=== PATIENT | female | born 1940 | race Caucasian/White ===

== ENCOUNTER 2020-01-11 03:38 | Inpatient (IN) | payer MEDICARE ==
[2020-01-11] VITALS (10 sets, daily range): BP systolic 118–159; BP diastolic 52–77
[~2020-01-11] VITALS: Ht 152.4 cm; Wt 94.5 kg
--- NOTE | 2020-01-11 04:09 | PHYS DOC ---
General Adult EDM: Chief Complaint: DYSPNEA/RESPIRATOY DISTRESS HPI: HPI: 79-year-old female presents with shortness of breath. The patient was feeling mildly short of breath after dinnertime last night. She was able to go to sleep. She woke up around 2 AM with significantly worse shortness of breath. Also feels like she has chills but did not measure a fever at home. She does not really have a cough, she just feels like she cannot catch her breath. She denies chest pain or diaphoresis. No stated on her cardiac history. The patient did recently have lumbar spinal fusion about 3 weeks ago. Review of Systems: Review of Systems: Constitutional: Denies fever or chills Eyes: Denies change in visual acuity HENT: Denies nasal congestion or sore throat Respiratory: Denies cough or shortness of breath Cardiovascular: Denies chest pain or edema GI: Denies abdominal pain, nausea, vomiting, bloody stools or diarrhea : Denies dysuria Musculoskeletal: Denies back pain or joint pain Integument: Denies rash Neurologic: Denies headache, focal weakness or sensory changes Endocrine: Denies polyuria or polydipsia Lymphatic: Denies swollen glands Psychiatric: Denies depression or anxiety Physical Exam: PE: Constitutional: Well developed, well nourished, obese, no acute distress, non- toxic appearance. [] HENT: Normocephalic, atraumatic, bilateral external ears normal, oropharynx moist, no oral exudates, nose normal. [] Eyes: PERRLA, EOMI, conjunctiva normal, no discharge. [] Neck: Normal range of motion, no tenderness, supple, no stridor. [] Cardiovascular: Heart rate regular rhythm, no murmur [] Lungs & Thorax: Bilateral breath sounds diminished[] Abdomen: Bowel sounds normal, soft, no tenderness, no masses, no pulsatile masses. [] Skin: Warm, dry, no erythema, no rash. [] Back: No tenderness, no CVA tenderness. [] Extremities: No tenderness, no cyanosis, no clubbing, ROM intact, no edema. [] Neurologic: Alert and oriented X 3, normal motor function, normal sensory fun ction, no focal deficits noted. [] Psychologic: Affect normal, judgement normal, mood normal. [] EKG: EKG: Sinus tachycardia, rate 133, normal axis, no ST elevation or depression. [] Radiology/Procedures: Radiology/Procedures: [] Impressions: Study: CR PORTABLE CHEST 1V Indication: Shortness of breath. Comparison: None. Findings: The cardiomediastinal silhouette is at the upper limits of normal for size taking into consideration AP technique. Plethoric central vasculature. Generalized increased interstitial markings with a predilection for the lower lung zones. Probable bibasilar volume loss and a suspected small left pleural effusion. Impression: Constellation of findings, as detailed above, raising the question of congestive heart failure/volume overload. A superimposed infectious process is not excluded. Follow-up to confirm improvement is recommended. Electronically signed by: MONICA SANCHEZ MD (01/11/2020 4:51 AM) [id number] DICTATED AND SIGNED BY: MONICA SANCHEZ MD DATE: 01/11/20 0451 CC: SHERI GARZON DO; LINO BROWNING MD ~ Heart Score: Risk Factors: Risk Factors: DM, Current or recent (<one month) smoker, HTN, HLP, family history of CAD, obesity. Risk Scores: Score 0 - 3: 2.5% MACE over next 6 weeks - Discharge Home Score 4 - 6: 20.3% MACE over next 6 weeks - Admit for Clinical Observation Score 7 - 10: 72.7% MACE over next 6 weeks - Early Invasive Strategies Course & Med Decision Making: Course & Med Decision Making Pertinent Labs and Imaging studies reviewed. (See chart for details) Patient's initial oxygen was 77. We will place her on 3 L nasal cannula as she increased to 83. She has a temperature of 103. I have ordered a liter of normal saline and 1 g of Tylenol. The patient's chest x-ray suggestive of possible CHF but infectious cause cannot be ruled out. COVID-19 is still within the differential also aggressive fluid resuscitation is not indicated. I am waiting for proBNP. Her lactic acid is greater than 3. Additionally ordered for a normal Lasix IV. Patient continues to have her rate around 130. Liter of fluid for possible sepsis. Sepsis for details. Blood cultures have been sent. Will cover with Zosyn. I discussed the patient with Dr. Browning and he has accepted her for admission. The patient is satting 93% on 4 to 5 L. 57 minutes of critical care time was spent on this patient exclusive of other billable procedures. [] Dragon Disclaimer: Dragon Disclaimer: This electronic medical record was generated, in whole or in part, using a voice recognition dictation system. Departure Departure: Impression: Primary Impression: Pneumonia Qualified Codes: J18.9 - Pneumonia, unspecified organism Additional Impressions: Suspected 2019 novel coronavirus infection Lactic acidosis Sepsis Disposition: 09 ADMITTED INPT THIS HOSP Admitting Physician: Lino Browning Condition: GUARDED Referrals: LINO BROWNING MD (PCP) Sepsis Assessment: Date and Time of Assessment Date: Jan 11, 2020 Time: 04:00 Respirations Respiratory Effort: Normal, Shortness of air Respiratory Pattern: Normal Cardiovascular Pulse Rhythm: Regular HEART: S1 and S2 normal Lung Sounds Breath Sounds: Diminished Capillary Refill Capillary Refill: Rt Hand < 3 seconds Peripheral Pulse Pulse Location: Monitor Pulse Strength: Normal (2+) Pulse Assessment Method: Monitor Integumentary Skin: Warm Skin Moisture: Dry Skin Turgor: Decreased Skin Color: no erythema Fingernail Color: WNL Sepsis Assessment: Date and Time of Assessment Date: Jan 11, 2020 Time: 05:33 Respirations Respiratory Effort: Shortness of air Cardiovascular Pulse Rhythm: Regular HEART: S1 and S2 normal Lung Sounds Breath Sounds: Diminished Capillary Refill Capillary Refill: Rt Hand < 3 seconds Peripheral Pulse Pulse Location: Monitor Pulse Strength: Normal (2+) Pulse Assessment Method: Monitor Integumentary Skin: Warm Skin Moisture: Dry Skin Turgor: Normal Skin Color: no erythema Fingernail Color: WNL SHERI GARZON DO Jan 11, 2020 04:09
[2020-01-11] MEDS ORDERED: ACETAMINOPHEN 500 MG TABLET PO ONE (04:15)
[2020-01-11] MEDS ORDERED: PIP/TAZO PER PHARMACY MC PRN ×2 (04:45→17:30)
--- NOTE | 2020-01-11 04:50 | EKG ---
[address] [address] Test Date: 2020-01-11 Test Time: 04:13:45 Pat Name: JIMENA YOUSIF Department: Room: Gender: F Tapper Supervisor: ALFA : [id number] Requested By: SHERI GARZON Order Number: [id number] Reading MD: Measurements Intervals [place] Rate: 133 P: 0 AR: 152 QRS: 46 QRSD: 72 T: 37 QT: 276 QTc: 412 Interpretive Statements SINUS TACHYCARDIA OTHERWISE NORMAL ECG RI6.02 No previous ECG available for comparison
--- NOTE | 2020-01-11 04:54 | RAD ---
Study: CR PORTABLE CHEST 1V Indication: Shortness of breath. Comparison: None. Findings: The cardiomediastinal silhouette is at the upper limits of normal for size taking into consideration AP technique. Plethoric central vasculature. Generalized increased interstitial markings with a predilection for the lower lung zones. Probable bibasilar volume loss and a suspected small left pleural effusion. Impression: Constellation of findings, as detailed above, raising the question of congestive heart failure/volume overload. A superimposed infectious process is not excluded. Follow-up to confirm improvement is recommended. Electronically signed by: MONICA SANCHEZ MD (01/11/2020 4:51 AM) [id number]
[2020-01-11] MEDS ORDERED: IV NORMAL SALINE 1,000ML 1,000 ML IV ONE (05:00)
[2020-01-11 05:14] LABS: BASO % 0 % (0-3); EOS # 1.2 x10^3/uL (0.0-0.7); EOS % 7 % (0-3); HEMATOCRIT 37.3 % (36.0-47.0); HEMOGLOBIN 11.8 g/dL (12.0-15.5); LYMPH % 6 % (24-48); MEAN CORPUSCULAR HEMOGLOBIN 30 pg (25-35); MEAN CORPUSCULAR HGB CONC 32 g/dL (31-37); MEAN CORPUSCULAR VOLUME 96 fL (79-100); MONO # 1.1 x10^3/uL (0.0-1.1); MONO % 7 % (0-9); NEUT # 14.2 x10^3uL (1.8-7.7); NEUT % 81 % (31-73); PLATELET COUNT 249 x10^3/uL (140-400); RED BLOOD COUNT 3.91 x10^6/uL (3.50-5.40); RED CELL DISTRIBUTION WIDTH 14.8 % (11.5-14.5); WHITE BLOOD COUNT 17.6 x10^3/uL (4.0-11.0)
[2020-01-11 05:15] LABS: CALCIUM 9.2 mg/dL (8.5-10.1); CREATININE 1.3 mg/dL (0.6-1.0); GFR 39.7; POTASSIUM 3.5 mmol/L (3.5-5.1)
[2020-01-11] MEDS ORDERED: ALBUTEROL SULFATE 2.5 MG/3 ML NEBU. NEB ONE (05:15)
[2020-01-11 05:28] LABS: ALBUMIN/GLOBULIN RATIO 0.8 (1.0-1.7); TOTAL BILIRUBIN 0.7 mg/dL (0.2-1.0); TOTAL PROTEIN 6.6 g/dL (6.4-8.2)
[2020-01-11] MEDS ORDERED: FUROSEMIDE 40 MG/4 ML VIAL IVP ONE (05:30)
[2020-01-11] MEDS ORDERED: ACETAMINOPHEN 325 MG TABLET PO PRN (05:45)
[2020-01-11] MEDS ORDERED: ONDANSETRON PF 4 MG/2 ML VIAL. IVP PRN (05:45)
[2020-01-11] MEDS ORDERED: PIPERACILLIN/TAZOBACTAM 3.375 GM in IV NORMAL SALINE 50ML 50 ML IV ONE (06:00)
[2020-01-11 06:14] LABS: INFLUENZA A PATIENT NEGATIVE (NEGATIVE); INFLUENZA B PATIENT NEGATIVE (NEGATIVE)
[2020-01-11] MEDS: IV NORMAL SALINE 1,000ML 1,000 ML IV SCH ×2 (06:15→06:59)
[2020-01-11] MEDS ORDERED: PIPERACILLIN/TAZOBACTAM 3.375 GM VIAL IV ONE (06:26)
[2020-01-11] MEDS ORDERED: IV NORMAL SALINE 50ML 50 ML ONE (06:26)
[2020-01-11 06:30] LABS: % BANDS 6 % (0-9); % SEGS 77 % (35-66)
[2020-01-11 06:31] LABS: % EOS 7 % (0-5); % LYMPHS 5 % (24-48); % MONOS 5 % (0-10); PLT ESTIMATE ADEQUATE (ADEQUATE)
[2020-01-11] MEDS: IPRATRPIUM/ALBUTEROL 0.5/2.5MG 3 ML NEBU. NEB SCH ×4 (08:00→20:00)
[2020-01-11] MEDS: PIPERACILLIN/TAZOBACTAM 3.375 GM in IV NORMAL SALINE 50ML 50 ML IV SCH ×2 (14:00→20:20)
--- NOTE | 2020-01-11 15:00 | NUR ---
Patient was admitted from the ED arrived to the unit via EMS. Patient is alert and oriented. Patient was oriented to unit routines. Patient is in isolation due to pending covid test. Patient is in bed with side rails up X's 2, call light in reach, WCTM. Dr Medina notified that patient has arrived to the unit awaiting return phone call for orders.
[2020-01-11 15:17] LABS: BILIRUBIN,URINE NEG (NEG); CLARITY,URINE CLEAR; COLOR,URINE YELLOW; GLUCOSE,URINE NEG (NEG); NITRITE,URINE NEG (NEG); UROBILINOGEN,URINE 0.2 mg/dL (0.2 mg/dL)
[2020-01-11 15:18] LABS: BACTERIA,URINE FEW /HPF (0-FEW); RBC,URINE RARE /HPF (0-2); SQUAMOUS EPITHELIAL CELL,UR FEW /LPF
[2020-01-11] MEDS ORDERED: METO25TA4 PO (16:20)
[2020-01-11] MEDS ORDERED: FURO-69 PO (16:20)
[2020-01-11] MEDS ORDERED: ATORVASTATIN CA80 MG PO (16:20)
[2020-01-11] MEDS ORDERED: OMEG1CAP50 PO (16:20)
[2020-01-11] MEDS ORDERED: CLOP75TA57 PO (16:20)
[2020-01-11] MEDS ORDERED: LISI-334 PO (16:20)
[2020-01-11] MEDS ORDERED: MULT-245 PO (16:20)
[2020-01-11] MEDS ORDERED: CELE200C PO (16:20)
[2020-01-11] MEDS ORDERED: METF500T16 PO (16:20)
[2020-01-11] MEDS ORDERED: FLUT9.9S NS (16:20)
[2020-01-11] MEDS ORDERED: GABA-586 PO (16:20)
[2020-01-11] MEDS ORDERED: AZITHROMYCIN 250 MG TABLET. PO ONE (17:30)
[2020-01-11] MEDS: VANCOMYCIN PER PHARMACY MC PRN (17:36)
--- NOTE | 2020-01-11 17:43 | NUR ---
Pharmacy Vancomycin Dosing Note S:Consulted to monitor and dose vancomycin started 01/11/20. O:JIMENA YOUSIF is a 79 year old F with Sepsis Pneumonia, . Height: 5 feet, 0 inches Weight: 93.8 kg [place] Body Weight: 45.50 Adjusted Body Weight: 64.82 Dosing Weight: Actual Other Antibiotics: AZITHROMYCIN PO ZOSYN 3.375GM IV LABS: Last BUN: 22 Last Creatinine: 1.3 Creatinine Clearance: 37.08 Last WBC: 17.6 Vancomycin Dosing: Loading Dose: 2000 mg x1 Dosing Weight: Actual Target Trough: 15-20 A: Based on: Actual weight, renal funcation, and indication P: 1. Begin Vancomycin 1500 mg IV q24h 2. Follow up Trough level on 01/13/20 at 1730 3. Pharmacy will continue to monitor, follow and adjust therapy as needed. BRENDA ASENCIO, 01/11/20 [id number]
[2020-01-11] MEDS ORDERED: ZOLPIDEM 5 MG TABLET. PO PRN (17:45)
[2020-01-11] MEDS ORDERED: ACETAMINOPHEN 500 MG TABLET PO PRN (17:45)
[2020-01-11] MEDS ORDERED: MAG HYDROX/AL HYDROX/SIMETH 30 ML ORAL.SUSP PO PRN (17:45)
[2020-01-11] MEDS ORDERED: VANCOMYCIN 2 GM in IV NORMAL SALINE 500ML 500 ML IV ONE (18:00)
[2020-01-11] MEDS: LISINOPRIL 20 MG TABLET PO SCH (18:06)
[2020-01-11] MEDS: METOPROLOL TART IMMED RELEASE 25 MG TABLET. PO SCH (18:07)
[2020-01-11] MEDS: CHOLECALCIFEROL (VITAMIN D3) 1,000 UNIT TABLET PO SCH (18:10)
[2020-01-11] MEDS: FAMOTIDINE 20 MG TABLET PO SCH (20:20)
[2020-01-11] MEDS: GABAPENTIN 300 MG CAPSULE. PO SCH (20:20)
[2020-01-11] MEDS ORDERED: LISINOPRIL 20 MG TABLET PO SCH (21:00)
[2020-01-11] MEDS ORDERED: METOPROLOL TART IMMED RELEASE 25 MG TABLET. PO SCH (21:00)
[2020-01-12] VITALS (13 sets, daily range): BP systolic 107–160; BP diastolic 47–82
--- NOTE | 2020-01-12 00:48 | HP ---
ADMIT DATE: HISTORY OF PRESENT ILLNESS: A 79-year-old female who was doing well. She recently had a major operation on her back with rods and fusion approximately on 12/17/2019. The patient, however, late last night began to have increased shortness of breath, finally came in through the Emergency Room where she was in acute respiratory distress. The patient was found to have a pneumonic process, and as a result of this, the patient along with her respiratory distress, was admitted to the hospital for IV antibiotic therapy and close monitoring. PAST MEDICAL HISTORY: History of stroke in 07/2018, hypercholesterolemia, hypertension, abdominal ultrasound, multiple skeletal disorders, orthopedic surgery, joint replacement, back pain, endocrine disorder, diabetes, history of skin cancer over the left eye, and influenza vaccination. ALLERGIES: CIPRO, OXYCODONE and PREDNISONE. FAMILY HISTORY: Unremarkable. SOCIAL HISTORY: Denies smoking, alcohol or drug use. HOME MEDICATIONS: Include Plavix, Lipitor 80, omega-3, metoprolol, lisinopril 20, Celebrex, gabapentin 300, metformin 500 b.i.d., fluticasone and multivitamin. REVIEW OF SYSTEMS: The patient denies any headaches, visual changes, blurred vision, double vision. Denies any melena, hematochezia, hematemesis and neurologically stable there except for difficulty in breathing. PHYSICAL EXAMINATION: GENERAL: This is a pleasant white female, looking stated age. VITAL SIGNS: Initially came in with blood pressure of approximately 150/70, respiratory rate 20, pulse 130, temperature 100.7. The patient is on 4 liters at 95%. HEENT: The patient's head was atraumatic, normocephalic. Eyes: PERRLA without jaundice. The mouth and throat were normal. NECK: Supple, without JVD, carotid bruits or thyromegaly. LUNGS: Diminished throughout, but basically clear. CARDIOVASCULAR: Regular sinus rhythm, S1, S2. ABDOMEN: Markedly protuberant, soft, but nontender. BACK: Lower back shows a well-healed surgical scar in the midline in the lower lumbar spine area. EXTREMITIES: Without clubbing, cyanosis, nor edema. NEUROLOGIC: The patient was her usual self. Speech fluent, spontaneous, and appropriate. LABORATORY DATA: White count was approximately 18,000 rounded off, hemoglobin and hematocrit 11 and 37. There were 6 bands noted. The patient's sodium and potassium 140, 3.5, 22, 1.3, 186 on the blood sugar. Lactic acid 3.6. Troponin is 0.031, alkaline phosphatase 120. BNP of 730. The patient's chest x-ray shows a possible pneumonic process versus that of heart failure. The patient, as noted, required up to 9 liters of oxygen at one time to maintain her proper oxygen saturation. In any case, the patient was placed in the ICU in critical condition and continued to be monitored there. IMPRESSION: Sepsis and pneumonia of unspecified etiology, acute on top of chronic diastolic heart failure, essential hypertension, sinus tachycardia, leukocytosis, and moderate protein malnutrition. PLAN: The patient continued to be monitored carefully. Her COVID-19 is still pending and we will make further adjustments there; otherwise, she is on IV antibiotic therapy and close monitoring here in the ICU. BRENDAN BROWNING MD DR: ESTER/cale JOB#: [id number] / [id number]
[2020-01-12] MEDS: PIPERACILLIN/TAZOBACTAM 3.375 GM in IV NORMAL SALINE 50ML 50 ML IV SCH ×4 (02:11→20:27)
[2020-01-12 06:44] LABS: BASO % 0 % (0-3); EOS # 1.3 x10^3/uL (0.0-0.7); EOS % 12 % (0-3); HEMATOCRIT 32.7 % (36.0-47.0); HEMOGLOBIN 10.4 g/dL (12.0-15.5); LYMPH % 19 % (24-48); MEAN CORPUSCULAR HEMOGLOBIN 30 pg (25-35); MEAN CORPUSCULAR HGB CONC 32 g/dL (31-37); MEAN CORPUSCULAR VOLUME 96 fL (79-100); MONO # 0.9 x10^3/uL (0.0-1.1); MONO % 8 % (0-9); NEUT # 6.4 x10^3uL (1.8-7.7); NEUT % 60 % (31-73); PLATELET COUNT 214 x10^3/uL (140-400); RED BLOOD COUNT 3.42 x10^6/uL (3.50-5.40); RED CELL DISTRIBUTION WIDTH 14.9 % (11.5-14.5); WHITE BLOOD COUNT 10.7 x10^3/uL (4.0-11.0)
[2020-01-12 06:51] LABS: ALBUMIN 2.4 g/dL (3.4-5.0); ALBUMIN/GLOBULIN RATIO 0.7 (1.0-1.7); CALCIUM 8.6 mg/dL (8.5-10.1); CREATININE 1.3 mg/dL (0.6-1.0); GFR 39.7; POTASSIUM 3.2 mmol/L (3.5-5.1); TOTAL BILIRUBIN 0.5 mg/dL (0.2-1.0); TOTAL PROTEIN 5.7 g/dL (6.4-8.2)
[2020-01-12] MEDS: CHOLECALCIFEROL (VITAMIN D3) 1,000 UNIT TABLET PO SCH (08:03)
[2020-01-12] MEDS: OMEGA-3 FATTY ACIDS/FISH OIL 1,000 MG CAPSULE. PO SCH (08:03)
[2020-01-12] MEDS: GABAPENTIN 300 MG CAPSULE. PO SCH ×3 (08:03→20:27)
[2020-01-12] MEDS: ATORVASTATIN CALCIUM 20 MG TABLET PO SCH (08:03)
[2020-01-12] MEDS: FAMOTIDINE 20 MG TABLET PO SCH ×2 (08:03→20:27)
[2020-01-12] MEDS: METOPROLOL TART IMMED RELEASE 25 MG TABLET. PO SCH (08:04)
[2020-01-12] MEDS: LISINOPRIL 20 MG TABLET PO SCH ×2 (08:05→20:28)
[2020-01-12] MEDS: CELECOXIB 100 MG CAPSULE PO SCH (08:05)
[2020-01-12] MEDS: MULTIVITAMIN with MINERAL TABLET. PO SCH (08:05)
[2020-01-12] MEDS: AZITHROMYCIN 250 MG TABLET. PO SCH (08:05)
[2020-01-12] MEDS: FUROSEMIDE 20 MG/2 ML VIAL IVP SCH ×2 (08:06→14:00)
[2020-01-12 08:42] LABS: % ATYL 2 % (0-0); % BANDS 5 % (0-9); % EOS 13 % (0-5); % LYMPHS 21 % (24-48); % MONOS 11 % (0-10); % SEGS 48 % (35-66)
[2020-01-12 08:43] LABS: PLT ESTIMATE ADEQUATE (ADEQUATE); POLYCHROMASIA PRESENT
[2020-01-12 08:44] LABS: TOXIC GRANULATION SLIGHT; TOXIC VACUOLATION SLIGHT
[2020-01-12 08:45] LABS: ANISOCYTOSIS SLIGHT; OVALOCYTES OCC; TEAR DROP CELLS OCC
[2020-01-12] MEDS ORDERED: CLOPIDOGREL BISULFATE 75 MG TABLET PO SCH (09:00)
[2020-01-12] MEDS ORDERED: FUROSEMIDE 20 MG TABLET PO SCH (09:00)
[2020-01-12] MEDS: FLUTICASONE 50MCG/NASAL SPRAY 16GM BOTTLE. NS SCH (10:03)
[2020-01-12 11:24] LABS: FECAL OB PT NEGATIVE (NEG)
[2020-01-12] MEDS ORDERED: POTASSIUM CHLORIDE 20 MEQ TABLET.ER. PO ONE (12:00)
[2020-01-12] MEDS ORDERED: ELECTROLYTE (NON-ICU) PROTOCOL. MC PRN (12:30)
--- NOTE | 2020-01-12 14:13 | RAD ---
Nuclear medicine perfusion lung scan. INDICATION: Shortness of air respiratory distress. Person under investigation for COVID. COMPARISON: Chest x-ray 01/11/2020. TECHNIQUE: Multiple ejection imaging of the lungs as a perfusion lung scan was performed following IV administration of 5.5 mCi of technetium labeled technetium 99 labeled [employer] radiopharmaceutical. FINDINGS: On the lateral and posterior oblique projection images, single perfusion defect is identified in the superior segment left lower lobe. This has no matching defect on the chest x-ray. IMPRESSION: Intermediate probability for pulmonary emboli with a single medium-sized mismatched perfusion defect noted. Electronically signed by: Stuart Wise MD (01/12/2020 2:10 PM) [id number]
--- NOTE | 2020-01-12 17:27 | NUR ---
Pt had a good day today. A&Ox4, oxygen requirements at 2L NC sating around 95%. Pt covid came back negative. pt did not complain of any pain besides some tenderness this morning where her incision from back sx is. Patient did have an episode of bradycardia in mid 30's. Pt was asymptomatic at the time and was eating dinner. Dr penny called and made aware and ordered to consult cardiology to see patient tomorrow morning.
--- NOTE | 2020-01-12 17:55 | NUR ---
Spoke with Dr. Valdovinos about history of patient and episode of bradycardia. Dr Valdovinos ordered to stop metoprolol at this time and continue with eliquis and lovenox to give tonight and cardiology will see her in the morning. GAURAV.
[2020-01-12] MEDS: VANCOMYCIN 1.5 GM in IV NORMAL SALINE 500ML 500 ML IV SCH (18:07)
[2020-01-12] MEDS: LACTOBACILLUS RHAMNOSUS GG 1 CAPSULE. PO SCH (20:27)
[2020-01-12] MEDS: APIXABAN 5 MG TABLET. PO SCH (20:28)
[2020-01-12] MEDS ORDERED: ENOXAPARIN 40 MG/0.4 ML SYRINGE. SQ SCH (21:00)
[2020-01-13] MEDS: PIPERACILLIN/TAZOBACTAM 3.375 GM in IV NORMAL SALINE 50ML 50 ML IV SCH ×4 (03:00→21:41)
--- NOTE | 2020-01-13 05:25 | NUR ---
RECEIVED PT FROM LEYDA CALVILLO THIS EVENING. PT HAS BEEN SLEEPING IN BED THROUGH THE NIGHT. PT IS STANDBY ASSIST WITH AMBULATING TO TOILET. PT HAS NOT EXPRESSED ANY CONCERNS OR DISCOMFORTS THIS EVENING. WILL CONTINUE TO MONITOR.
[2020-01-13 05:41] VITALS: BP 116/64
[2020-01-13] MEDS: VANCOMYCIN 750 MG in IV NORMAL SALINE 250ML 250 ML IV SCH ×2 (06:00→18:00)
[2020-01-13 06:15] LABS: CALCIUM 8.5 mg/dL (8.5-10.1); CREATININE 1.3 mg/dL (0.6-1.0); GFR 39.7; POTASSIUM 3.2 mmol/L (3.5-5.1)
--- NOTE | 2020-01-13 07:43 | PDOC2 ---
CARDIAC CONSULT DATE OF CONSULT DOS: DATE: 01/13/20 TIME: 07:34 REASON FOR CONSULT Reason for Consult Bradycardia REFERRING PHYSICIAN Referring Physician Dr. Medina SOURCE Source: Chart review, Patient HPI History of Present Illness This is a 79 yo female who presented secondary to shortness of breath that began the day prior to arrival. Progressively worsening so she came to the ED for further evaluation and treatment. She denies any LE edema. No known COVID exposure. Did have chills prior to arrival. Was febrile upon admission. Initially ST upon arrival. Home metoprolol was resumed. Yesterday evening, had a brief period of transient bradycardia where HR dipped into the upper 30's low 40's, which prompted this consult. No pauses. HR has been adequate since with mean 85-90bpm. She denies any chest pain, dizziness, diaphoresis, or syncopal episodes. PAST MEDICAL HISTORY Cardiovascular: HTN, hyperipidemia CENTRAL NERVOUS SYSTEM: CVA Endocrine: Diabetes PAST SURGICAL HISTORY Past Surgical History: Hernia Repair, Total knee replacement (left ), Other (spinal fusion ) FAMILY HISTORY Family History: High Cholestrol, Hypertension SOCIAL HISTORY Smoke: No ALCOHOL: none Drugs: None CURRENT MEDICATIONS Current Medications Current Medications Acetaminophen (Tylenol) 1,000 mg 1X ONCE PO Last administered on 01/11/20at 04:42; Start 01/11/20 at 04:15; Stop 01/11/20 at 05:30; Status DC Sodium Chloride 1,000 ml @ 1,000 mls/hr 1X ONCE IV Last administered on 01/11/20at 06:50; Start 01/11/20 at 05:00; Stop 01/11/20 at 05:59; Status DC Piperacillin Sod/ Tazobactam Sod (Zosyn Per Pharmacy) 1 each PRN DAILY PRN MC SEE COMMENTS; Start 01/11/20 at 04:45; Stop 01/11/20 at 17:30; Status DC Albuterol Sulfate (Ventolin) 2.5 mg 1X ONCE NEB Last administered on 01/11/20at 06:32; Start 01/11/20 at 05:15; Stop 01/11/20 at 05:30; Status DC Furosemide (Lasix) 40 mg 1X ONCE IVP Last administered on 01/11/20at 06:52; Start 01/11/20 at 05:30; Stop 01/11/20 at 05:31; Status DC Piperacillin Sod/ Tazobactam Sod 3.375 gm/Sodium Chloride 50 ml @ 100 mls/hr 1X ONCE IV Last administered on 01/11/20at 06:51; Start 01/11/20 at 06:00; Stop 01/11/20 at 06:29; Status DC Sodium Chloride 1,000 ml @ 1,380 mls/hr Q44M IV Last administered on 01/11/20at 06:15; Start 01/11/20 at 06:15; Stop 01/11/20 at 07:15; Status DC Ondansetron HCl (Zofran) 4 mg PRN Q4HRS PRN IVP NAUSEA/VOMITING; Start 01/11/20 at 05:45; Stop 01/12/20 at 05:44; Status DC Acetaminophen (Tylenol) 650 mg PRN Q4HRS PRN PO FEVER > 100.3'F Last administered on 01/11/20at 18:07; Start 01/11/20 at 05:45; Stop 01/12/20 at 05:44; Status DC Albuterol/ Ipratropium (Duoneb) 3 ml RTQID NEB Last administered on 01/11/20at 08:00; Start 01/11/20 at 08:00; Stop 01/12/20 at 08:00; Status DC Sodium Chloride 50 ml @ As Directed STK-MED ONCE .ROUTE ; Start 01/11/20 at 06 :26; Stop 01/11/20 at 06:26; Status DC Piperacillin Sod/ Tazobactam Sod (Zosyn) 3.375 gm STK-MED ONCE IV ; Start 01/11/20 at 06:26; Stop 01/11/20 at 06:27; Status DC Piperacillin Sod/ Tazobactam Sod 3.375 gm/Sodium Chloride 50 ml @ 100 mls/hr Q6H IV Last administered on 01/13/20at 03:00; Start 01/11/20 at 14:00 Lisinopril (Prinivil) 20 mg BID PO ; Start 01/11/20 at 21:00; Stop 01/11/20 at 16:53; Status DC Metoprolol Tartrate (Lopressor) 25 mg BID PO ; Start 01/11/20 at 21:00; Stop 01/11/20 at 16:53; Status DC Lisinopril (Prinivil) 20 mg BID PO Last administered on 01/12/20 20:28; Start 01/11/20 at 17:00 Metoprolol Tartrate (Lopressor) 25 mg BID PO Last administered on 01/12/20at 08:04; Start 01/11/20 at 17:00; Stop 01/12/20 at 17:58; Status DC Clopidogrel Bisulfate (Plavix) 75 mg DAILY PO Last administered on 01/12/20 08:05; Start 01/12/20 at 09:00; Stop 01/12/20 at 11:58; Status DC Furosemide (Lasix) 20 mg DAILY PO ; Start 01/12/20 at 09:00; Stop 01/11/20 at 17:24; Status DC Gabapentin (Neurontin) 300 mg TID PO Last administered on 01/12/20at 20:27; Start 01/11/20 at 21:00 Fish Oil (Fish Oil) 1,000 mg DAILY PO Last administered on 01/12/20at 08:03; Start 01/12/20 at 09:00 Atorvastatin Calcium (Lipitor) 80 mg DAILY PO Last administered on 01/12/20 08:03; Start 01/12/20 at 09:00 Celecoxib (CeleBREX) 200 mg DAILY PO Last administered on 01/12/20 08:05; Start 01/12/20 at 09:00 Fluticasone Propionate (Flonase) 2 spray DAILY NS Last administered on 01/12/20at 10:03; Start 01/12/20 at 09:00 Multivitamins/ Calcium (Thera-M Plus) 1 tab DAILY PO Last administered on 01/12/20at 08:05; Start 01/12/20 at 09:00 Furosemide (Lasix) 20 mg BID92 IVP Last administered on 01/12/20at 14:00; Start 01/12/20 at 09:00 Azithromycin (Zithromax) 500 mg 1X ONCE PO Last administered on 01/11/20at 18:10; Start 01/11/20 at 17:30; Stop 01/11/20 at 17:35; Status DC Azithromycin (Zithromax) 250 mg DAILY PO Last administered on 01/12/20at 08:05; Start 01/12/20 at 09:00 Piperacillin Sod/ Tazobactam Sod (Zosyn Per Pharmacy) 1 each PRN DAILY PRN MC SEE COMMENTS Last administered on 01/11/20at 17:36; Start 01/11/20 at 17:30 Famotidine (Pepcid) 20 mg BID PO Last administered on 01/12/20at 20:27; Start 01/11/20 at 21:00 Vitamin D (Vitamin D3) 1,000 unit DAILY PO Last administered on 01/12/20at 08:03; Start 01/11/20 at 17:30 Vancomycin HCl (Vanco Per Pharmacy) 1 each PRN DAILY PRN MC SEE COMMENTS Last administered on 01/11/20at 17:36; Start 01/11/20 at 17:30 Vancomycin HCl 2 gm/Sodium Chloride 500 ml @ 250 mls/hr 1X ONCE IV Last administered on 01/11/20at 18:10; Start 01/11/20 at 18:00; Stop 01/11/20 at 19:59; Status DC Vancomycin HCl 1.5 gm/Sodium Chloride 500 ml @ 250 mls/hr Q24H IV Last administered on 01/12/20at 18:07; Start 01/12/20 at 18:00 Vancomycin HCl (Vancomycin Trough Level) 1 each 1X ONCE MC ; Start 01/13/20 at 17:30; Stop 01/13/20 at 17:31 Acetaminophen (Tylenol) 500 mg PRN Q6HRS PRN PO MILD PAIN / TEMP > 100.3'F Last administered on 01/12/20at 09:20; Start 01/11/20 at 17:45 Zolpidem Tartrate (Ambien) 5 mg PRN QHS PRN PO INSOMNIA, MAY REPEAT IN 1HR; Start 01/11/20 at 17:45 Al Hydroxide/Mg Hydroxide (Mylanta Plus Xs) 30 ml PRN Q2HR PRN PO DYSPEPSIA; Start 01/11/20 at 17:45 Lactobacillus Rhamnosus (Culturelle) 1 cap BID PO Last administered on 01/12/20at 20:27; Start 01/12/20 at 21:00 Potassium Chloride (Klor-Con) 40 meq 1X ONCE PO Last administered on 01/12/20at 12:08; Start 01/12/20 at 12:00; Stop 01/12/20 at 12:06; Status DC Enoxaparin Sodium (Lovenox 40mg Syringe) 40 mg Q24H SQ Last administered on 01/12/20at 20:27; Start 01/12/20 at 21:00 Info (Non-Icu Electrolyte Protocol) 1 ea CONT PRN PRN MC PER PROTOCOL; Start 01/12/20 at 12:30 Apixaban (Eliquis) 10 mg BID PO Last administered on 01/12/20at 20:28; Start 01/12/20 at 21:00 Active Scripts Active Reported Flonase Allergy Relief (Fluticasone Propionate) 9.9 Ml [place].susp 2 Sprays NS DAILY Fish Oil 1,000 Mg Softgel ([place]-3 Fatty Acids/Fish Oil) 1 Each Capsule 1 Cap PO DAILY 30 Days Multi Vitamin Daily (Multivitamin) 1 Each Tablet 1 Tab PO DAILY 30 Days Plavix (Clopidogrel Bisulfate) 75 Mg Tablet 1 Tab PO DAILY 30 Days Gabapentin (Gabapentin) 300 Mg Capsule 300 Mg PO TID Celebrex (Celecoxib) 200 Mg Capsule 1 Cap PO DAILY Atorvastatin Calcium 80 Mg Tablet 1 Tab PO DAILY Lisinopril 20 Mg Tablet 1 Tab PO BID Metformin Hcl 500 Mg Tablet 1 Tab PO BID Metoprolol Tartrate 25 Mg Tablet 1 Tab PO BID ALLERGIES Allergies: Coded Allergies: ciprofloxacin (Verified Allergy, Unknown, 01/11/20) oxycodone (Verified Allergy, Unknown, 01/11/20) prednisone (Verified Allergy, Unknown, 01/11/20) ROS Review of Systems 14 point ROS conducted with pertinent positives noted above in HPI PHYSICAL EXAM General: Alert, Oriented X3, Cooperative, No acute distress HEENT: Atraumatic, Mucous membr. moist/pink Lungs: Other (diminished ) Heart: Regular rate, Normal S1, Normal S2 Abdomen: Soft, No tenderness Extremities: No edema, Normal pulses Skin: No breakdown Neuro: Normal speech, Sensation intact Psych/Mental Status: Mental status NL, Mood NL MUSCULOSKELETAL: Osteoarthritic changes both hands VITALS Vital Signs Vital Signs Date Time Temp Pulse Resp B/P (MAP) Pulse Ox O2 Delivery O2 Flow Rate FiO2 01/13/20 05:41 98.0 85 18 116/64 (81) 97 Nasal Cannula 2.0 LABS LABS Laboratory Tests Test 01/11/20 08:09 01/11/20 14:00 01/12/20 06:00 01/12/20 09:15 Lactic Acid Level 2.6 mmol/L (0.4-2.0) Urine Collection Type Unknown Urine Color Yellow Urine Clarity Clear Urine pH 5.0 Urine Specific [place] 1.020 Urine Protein Neg (NEG-TRACE) Urine Glucose (UA) Neg mg/dL (NEG) Urine Ketones (Stick) Neg mg/dL (NEG) Urine Blood Trace (NEG) Urine Nitrite Neg (NEG) Urine Bilirubin Neg (NEG) Urine Urobilinogen Dipstick 0.2 mg/dL (0.2 mg/dL) Urine Leukocyte Esterase Neg (NEG) Urine RBC Rare /HPF (0-2) Urine WBC 5-10 /HPF (0-4) Urine Squamous Epithelial Cells Few /LPF Urine Bacteria Few /HPF (0-FEW) White Blood Count 10.7 x10^3/uL (4.0-11.0) Red Blood Count 3.42 x10^6/uL (3.50-5.40) Hemoglobin 10.4 g/dL (12.0-15.5) Hematocrit 32.7 % (36.0-47.0) Mean Corpuscular Volume 96 fL (79-100) Mean Corpuscular Hemoglobin 30 pg (25-35) Mean Corpuscular Hemoglobin Concent 32 g/dL (31-37) Red Cell Distribution Width 14.9 % (11.5-14.5) Platelet Count 214 x10^3/uL (140-400) Neutrophils (%) (Auto) 60 % (31-73) Lymphocytes (%) (Auto) 19 % (24-48) Monocytes (%) (Auto) 8 % (0-9) Eosinophils (%) (Auto) 12 % (0-3) Basophils (%) (Auto) 0 % (0-3) Neutrophils # (Auto) 6.4 x10^3uL (1.8-7.7) Lymphocytes # (Auto) 2.0 x10^3/uL (1.0-4.8) Monocytes # (Auto) 0.9 x10^3/uL (0.0-1.1) Eosinophils # (Auto) 1.3 x10^3/uL (0.0-0.7) Basophils # (Auto) 0.0 x10^3/uL (0.0-0.2) Segmented Neutrophils % 48 % (35-66) Band Neutrophils % 5 % (0-9) Lymphocytes % 21 % (24-48) Atypical Lymphocytes % (Manual) 2 % (0-0) Monocytes % 11 % (0-10) Eosinophils % 13 % (0-5) Toxic Granulation Slight Toxic Vacuolation Slight Platelet Estimate Adequate (ADEQUATE) Polychromasia Present Anisocytosis Slight Tear Drop Cells Occ Ovalocytes Occ D-Dimer (Lis) 5.43 mg/L (0.00-0.50) Sodium Level 143 mmol/L (136-145) Potassium Level 3.2 mmol/L (3.5-5.1) Chloride Level 106 mmol/L (98-107) Carbon Dioxide Level 28 mmol/L (21-32) Anion Gap 9 (6-14) Blood Urea Nitrogen 26 mg/dL (7-20) Creatinine 1.3 mg/dL (0.6-1.0) Estimated GFR (Cockcroft-Gault) 39.7 BUN/Creatinine Ratio 20 (6-20) Glucose Level 146 mg/dL (70-99) Calcium Level 8.6 mg/dL (8.5-10.1) Total Bilirubin 0.5 mg/dL (0.2-1.0) Aspartate Amino Transf (AST/SGOT) 12 U/L (15-37) Alanine Aminotransferase (ALT/SGPT) 14 U/L (14-59) Alkaline Phosphatase 90 U/L (46-116) Total Protein 5.7 g/dL (6.4-8.2) Albumin 2.4 g/dL (3.4-5.0) Albumin/Globulin Ratio 0.7 (1.0-1.7) Stool Occult Blood Negative (NEG) Test 01/13/20 05:40 01/13/20 06:55 Sodium Level 147 mmol/L (136-145) Potassium Level 3.2 mmol/L (3.5-5.1) Chloride Level 109 mmol/L (98-107) Carbon Dioxide Level 28 mmol/L (21-32) Anion Gap 10 (6-14) Blood Urea Nitrogen 27 mg/dL (7-20) Creatinine 1.3 mg/dL (0.6-1.0) Estimated GFR (Cockcroft-Gault) 39.7 Glucose Level 156 mg/dL (70-99) Calcium Level 8.5 mg/dL (8.5-10.1) Glucose (Fingerstick) 152 mg/dL (70-99) ASSESSMENT/PLAN Assessment/Plan 1. Acute respiratory failure with mild CHF, probable PNA, and possible PE 2. Mild acute probable diastolic CHF; improved s/p IV Lasix. appears compensated 3. Leukocytosis, lactic acidosis, fevers 4. Bradycardia, sinus. Transient. Initially ST upon arrival. Brief period yesterday evening HR dipped to 36. No pauses. Metoprolol discontinued. No further bradycardia. HR mean presently. 85-90 5. Hypertension; now controlled 6. Hyperlipidemia; statin 7. Diabetes, II 8. SAMIRA, hyponatremia 9. Elevated D-dimer; VQ with intermediate probability for PE. On Eliquis 10. Hypokalemia 11. PUI: PCR negative 12. H/o CVA Recommendations Replace K. Check Mg and replace as warranted Discontinue IV Lasix. Additional PRN Resume metoprolol; will decrease to 12.5mg BID. Monitor rhythm/rate Outpatient echo to assess LV systolic function Consider outpatient ischemic evaluation based upon risk factors. Antibiotic therapy and OAC as per SONYA FOWLER APRN Jan 13, 2020 07:43
[2020-01-13] MEDS ORDERED: POTASSIUM CHLORIDE 20 MEQ TABLET.ER. PO ONE (08:00)
[2020-01-13] MEDS: OMEGA-3 FATTY ACIDS/FISH OIL 1,000 MG CAPSULE. PO SCH (08:04)
[2020-01-13] MEDS: CHOLECALCIFEROL (VITAMIN D3) 1,000 UNIT TABLET PO SCH (08:04)
[2020-01-13] MEDS: ATORVASTATIN CALCIUM 20 MG TABLET PO SCH (08:04)
[2020-01-13] MEDS: LACTOBACILLUS RHAMNOSUS GG 1 CAPSULE. PO SCH ×2 (08:04→21:41)
[2020-01-13] MEDS: GABAPENTIN 300 MG CAPSULE. PO SCH ×3 (08:04→21:40)
[2020-01-13] MEDS: AZITHROMYCIN 250 MG TABLET. PO SCH (08:04)
[2020-01-13] MEDS: FAMOTIDINE 20 MG TABLET PO SCH ×2 (08:04→21:40)
[2020-01-13] MEDS: MULTIVITAMIN with MINERAL TABLET. PO SCH (08:04)
[2020-01-13] MEDS: APIXABAN 5 MG TABLET. PO SCH ×2 (08:05→21:41)
[2020-01-13] MEDS: FUROSEMIDE 20 MG/2 ML VIAL IVP SCH (08:05)
[2020-01-13] MEDS: CELECOXIB 100 MG CAPSULE PO SCH (08:05)
[2020-01-13] MEDS: LISINOPRIL 20 MG TABLET PO SCH ×2 (08:05→21:41)
[2020-01-13] MEDS: METOPROLOL TART IMMED RELEASE 25 MG TABLET. PO SCH ×2 (08:43→21:40)
[2020-01-13] MEDS: FLUTICASONE 50MCG/NASAL SPRAY 16GM BOTTLE. NS SCH (08:44)
[2020-01-13 10:42] VITALS: BP 150/71
--- NOTE | 2020-01-13 11:14 | PN ---
DATE: SUBJECTIVE: A 79-year-old female brought in with acute respiratory distress. She is resting fairly comfortably, although today, she did still have some trouble breathing. We did a positive D-dimer, did a V/Q scan showed intermediate probability. Since she has recently had surgery on her back and has been lying around because of this back pain. The patient was started on some Eliquis that will be adjusted accordingly. The patient denies chest pain per se. Blood pressure 130/82, respiratory rate 22, pulse anywhere from the 80s, had gone down into apparently the low 40s, but came back up into the 80s at one time when she first came in. Her pulse was running in the 120-130 range, which may have been an indication of the positive D-dimer and her pulmonary emboli would make it more reasonable. GENERAL: Otherwise, she is alert and oriented, cheerful as usual. LUNGS: Diminished throughout, poor movement of air, but clear. CARDIOVASCULAR: Regular sinus rhythm. ABDOMEN: Soft, nontender, no rebound or guarding. Positive bowel sounds. EXTREMITIES: No clubbing, cyanosis. Trace edema. NEUROLOGIC: Intact. IMPRESSION: Acute respiratory distress. She is extremely hypoxic when she first came in. Sick sinus syndrome, sinus tachycardia, probable pulmonary emboli, 3 weeks postop for back surgery, essential hypertension, leukocytosis, and moderate protein malnutrition, chronic diastolic heart failure. Consult Cardiology. Continue present drug regimen as indicated. BRENDAN BROWNING MD DR: ESTER/cale JOB#: [id number] / [id number]
[2020-01-13 14:30] VITALS: BP 128/72
--- NOTE | 2020-01-13 15:19 | RAD ---
CHEST PA LATERAL INDICATION: Reason: CHEST PAIN, SHORTNESS OF BREATH / Spl. Instructions: / History: . COMPARISON STUDY: 01/11/2020. FINDINGS: Lungs: Normal lung volume. Stable bibasilar opacities. Improving interstitial prominence. Pleura: Small bilateral pleural effusions. Heart and Mediastinum: Stable cardiomediastinal silhouette and great vessels. Bones and Soft Tissues: Stable regional skeleton and soft tissues. IMPRESSION: 1. Improving interstitial prominence. Stable bibasilar opacities. 2. Small bilateral pleural effusions. Electronically signed by: Tera Phillips MD (01/13/2020 3:16 PM) [id number]
[2020-01-13] MEDS: VANCOMYCIN 1.5 GM in IV NORMAL SALINE 500ML 500 ML IV SCH (18:00)
[2020-01-13 18:35] LABS: VANC TR 14.2 mcg/mL (10.0-20.0)
[2020-01-13] MEDS: VANCOMYCIN PER PHARMACY MC PRN (19:13)
--- NOTE | 2020-01-13 19:14 | NUR ---
Pharmacy Vancomycin Dosing Note S:Consulted to monitor and dose vancomycin started 01/11/20. O:JIMENA YOUSIF is a 79 year old F with sepsis, pneumonia Height: 5 feet, 0 inches Weight: 94.6 kg [place] Body Weight: 45.50 Adjusted Body Weight: 65.14 Dosing Weight: Actual Other Antibiotics: AZITHROMYCIN PO ZOSYN 3.375GM IV LABS: Last BUN: 27 Last Creatinine: 1.3 Creatinine Clearance: 37.08 Last WBC: 10.7 Drug Levels: Last Trough level: 14.2 on 01/13/20 at 1730 Last dose given 01/13/20 at 1800 Vancomycin Dosing: Loading Dose: 2000 mg x1 Dosing Weight: Actual Target Trough: 15-20 A: Based on: Patient's trough is below goal for treatment of sepsis. We will increase the frequency and continue monitoring. P: 1. Change Vancomycin 750 mg IV q12h 2. Follow up Trough level on 01/13/20 at 1730 3. Pharmacy will continue to monitor, follow and adjust therapy as needed. LAZARA GERMAN, 01/13/20 [id number]
[2020-01-13 19:37] VITALS: BP_SYST 120; BP_SYST 140; BP_DIAS 63; BP_DIAS 72
[2020-01-13] MEDS ORDERED: DEXTROSE 50% 25 GM / 50ML DISP.SYRIN. IV PRN (21:00)
[2020-01-13 23:00] VITALS: BP 159/85
[2020-01-14] MEDS: PIPERACILLIN/TAZOBACTAM 3.375 GM in IV NORMAL SALINE 50ML 50 ML IV SCH ×4 (02:20→20:29)
--- NOTE | 2020-01-14 03:59 | NUR ---
PT HAS CONCERNS ABOUT FLUID BUILD UP ON HER ABD. PT STATED HER ABD IS NORMALLY FIRM. PTS ABD IS SOFT TO TOUCH WITH NO PAIN. THIS RN TOLD PT SHE WOULD PASS ON HER CONCERNS TO DAY SHIFT.
[2020-01-14] MEDS ORDERED: POTASSIUM CHLORIDE 20 MEQ TABLET.ER. PO ONE (04:30)
[2020-01-14] MEDS: VANCOMYCIN 750 MG in IV NORMAL SALINE 250ML 250 ML IV SCH ×2 (05:17→17:36)
[2020-01-14 05:51] VITALS: BP 138/66
--- NOTE | 2020-01-14 07:54 | PDOC ---
CARDIO Progress Notes Date & Time Date of Service DATE: 01/14/20 TIME: 07:51 Time of Evaluation 07:51 Subjective Notes No chest pain, palpitations, dizziness, syncope Vitals Vitals Vital Signs Date Time Temp Pulse Resp B/P (MAP) Pulse Ox O2 Delivery O2 Flow Rate FiO2 01/14/20 05:51 98.2 82 18 138/66 (90) 95 Nasal Cannula 2.0 Weight Weight [ ] Input and Output I.O. Intake and Output 01/14/20 07:00 Intake Total 1760 ml Balance 1760 ml Intake Oral 1160 ml IV Total 600 ml # Voids 7 Laboratory Labs Laboratory Tests Test 01/12/20 09:15 01/13/20 05:40 01/13/20 06:55 01/13/20 17:39 Stool Occult Blood Negative (NEG) Sodium Level 147 mmol/L (136-145) Potassium Level 3.2 mmol/L (3.5-5.1) Chloride Level 109 mmol/L (98-107) Carbon Dioxide Level 28 mmol/L (21-32) Anion Gap 10 (6-14) Blood Urea Nitrogen 27 mg/dL (7-20) Creatinine 1.3 mg/dL (0.6-1.0) Estimated GFR (Cockcroft-Gault) 39.7 Glucose Level 156 mg/dL (70-99) Calcium Level 8.5 mg/dL (8.5-10.1) Magnesium Level 1.6 mg/dL (1.8-2.4) Glucose (Fingerstick) 152 mg/dL (70-99) Vancomycin Level Trough 14.2 mcg/mL (10.0-20.0) Vancomycin Last Dose Date 01/12/20 Vancomycin Last Dose Time 1800 Test 01/13/20 22:40 01/14/20 07:17 Glucose (Fingerstick) 144 mg/dL (70-99) 139 mg/dL (70-99) Microbiology Micro Microbiology 01/11/20 Urine Culture - Final, Complete 01/11/20 Blood Culture - Preliminary, Resulted NO GROWTH AFTER 3 DAYS... Physical Exams HEENT: Neck Supple W Full Motion Chest: Symmetric Lungs: Clear to Auscultation Heart: RRR (ST/SR) Abdomen: Soft N/T Extremities: No Edema Neurology: alert, oriented, follow commands Assessment Assessment 1. Acute respiratory failure with mild CHF, probable PNA, and possible PE. improved 2. Mild acute probable diastolic CHF; improved s/p IV Lasix. appears compensated 3. Leukocytosis, lactic acidosis, fevers 4. Bradycardia, sinus. Transient. Initially ST upon arrival. Brief period 01/11 evening HR dipped to 36. No pauses. Metoprolol decreased. Now SR/ST 5. Hypertension; controlled 6. Hyperlipidemia; statin 7. Diabetes, II 8. SAMIRA, hyponatremia 9. Elevated D-dimer; VQ with intermediate probability for PE. On Eliquis 10. Hypokalemia, hypomagnesemia 11. PUI: PCR negative 12. H/o CVA 13. Anemia; monitor on OAC Recommendations Recheck labs Lasix PRN Resume metoprolol at 25mg BID. Monitor rhythm/rate Outpatient echo to assess LV systolic function Consider outpatient event monitor and ischemic evaluation based upon risk factors. Antibiotic therapy and OAC as per SONYA FOWLER APRN Jan 14, 2020 07:54
[2020-01-14] MEDS: LISINOPRIL 20 MG TABLET PO SCH ×2 (08:00→20:29)
[2020-01-14] MEDS: INSULIN LISPRO 300 UNITS/3 ML VIAL. SQ SCH ×3 (08:00→17:38)
[2020-01-14] MEDS: CELECOXIB 100 MG CAPSULE PO SCH (08:01)
[2020-01-14] MEDS: OMEGA-3 FATTY ACIDS/FISH OIL 1,000 MG CAPSULE. PO SCH (08:01)
[2020-01-14] MEDS: ATORVASTATIN CALCIUM 20 MG TABLET PO SCH (08:01)
[2020-01-14] MEDS: FAMOTIDINE 20 MG TABLET PO SCH ×2 (08:01→20:28)
[2020-01-14] MEDS: CHOLECALCIFEROL (VITAMIN D3) 1,000 UNIT TABLET PO SCH (08:01)
[2020-01-14] MEDS: MULTIVITAMIN with MINERAL TABLET. PO SCH (08:01)
[2020-01-14] MEDS: GABAPENTIN 300 MG CAPSULE. PO SCH ×3 (08:01→20:28)
[2020-01-14] MEDS: AZITHROMYCIN 250 MG TABLET. PO SCH (08:01)
[2020-01-14] MEDS: LACTOBACILLUS RHAMNOSUS GG 1 CAPSULE. PO SCH ×2 (08:02→20:27)
[2020-01-14] MEDS: METOPROLOL TART IMMED RELEASE 25 MG TABLET. PO SCH ×2 (08:02→20:28)
[2020-01-14] MEDS: APIXABAN 5 MG TABLET. PO SCH ×2 (08:02→20:28)
[2020-01-14] MEDS: FLUTICASONE 50MCG/NASAL SPRAY 16GM BOTTLE. NS SCH (08:02)
[2020-01-14] MEDS ORDERED: MAGNESIUM OXIDE 400 MG TABLET PO SCH (09:00)
--- NOTE | 2020-01-14 10:29 | PN ---
DATE: SUBJECTIVE: A 79-year-old female who is in with a variety of medical problems. Her sick sinus syndrome, bradycardia seems to have resolved. She did have a positive D-dimer, V/Q scan and that gave her an increased shortness of breath, but today she is an extremely good form, joking as it were. OBJECTIVE: VITAL SIGNS: Blood pressure 150/70, respiratory rate 24, pulse 76, afebrile. The patient is just on 2 liters at 97%. GENERAL: The patient is alert and oriented. LUNGS: Diminished, poor movement of air. CARDIOVASCULAR: Regular sinus rhythm. ABDOMEN: Soft, nontender, no rebound or guarding. Positive bowel sounds, no hepatosplenomegaly noted. IMPRESSION: Acute respiratory failure, extremely hypoxic, bradycardia, sinus tachycardia, pulmonary emboli, post back surgery 3 weeks, essential hypertension, leukocytosis, moderate protein malnutrition, obesity, chronic diastolic heart failure. PLAN: Continue to adjust medications. Repeat chest x-ray shows improvement and she remains afebrile. Continue with PT, OT. BRENDAN BROWNING MD DR: ESTER/cale JOB#: [id number] / [id number]
[2020-01-14 11:06] VITALS: BP 139/56
[2020-01-14 14:54] LABS: BASO % 1 % (0-3); EOS # 0.6 x10^3/uL (0.0-0.7); EOS % 9 % (0-3); HEMATOCRIT 30.4 % (36.0-47.0); HEMOGLOBIN 9.8 g/dL (12.0-15.5); LYMPH # 2.1 x10^3/uL (1.0-4.8); LYMPH % 31 % (24-48); MEAN CORPUSCULAR HEMOGLOBIN 31 pg (25-35); MEAN CORPUSCULAR HGB CONC 32 g/dL (31-37); MEAN CORPUSCULAR VOLUME 95 fL (79-100); MONO # 0.5 x10^3/uL (0.0-1.1); MONO % 8 % (0-9); NEUT # 3.5 x10^3uL (1.8-7.7); NEUT % 52 % (31-73); PLATELET COUNT 265 x10^3/uL (140-400); WHITE BLOOD COUNT 6.8 x10^3/uL (4.0-11.0)
[2020-01-14 15:06] LABS: CALCIUM 8.6 mg/dL (8.5-10.1); CREATININE 1.3 mg/dL (0.6-1.0); GFR 39.7; MAGNESIUM 1.7 mg/dL (1.8-2.4); POTASSIUM 3.4 mmol/L (3.5-5.1)
[2020-01-14 15:11] VITALS: BP 117/80
[2020-01-14] MEDS: IPRATRPIUM/ALBUTEROL 0.5/2.5MG 3 ML NEBU. NEB SCH ×2 (15:13→20:58)
[2020-01-14 19:10] VITALS: BP 157/83
[2020-01-14 23:33] VITALS: BP 151/69
[2020-01-15] MEDS: PIPERACILLIN/TAZOBACTAM 3.375 GM in IV NORMAL SALINE 50ML 50 ML IV SCH ×2 (02:34→07:46)
[2020-01-15 05:30] VITALS: BP 172/74
[2020-01-15] MEDS: IPRATRPIUM/ALBUTEROL 0.5/2.5MG 3 ML NEBU. NEB SCH ×2 (06:17→10:59)
[2020-01-15 06:49] LABS: VANC TR 19.1 mcg/mL (10.0-20.0)
[2020-01-15] MEDS: GABAPENTIN 300 MG CAPSULE. PO SCH (07:33)
[2020-01-15] MEDS: FAMOTIDINE 20 MG TABLET PO SCH (07:34)
[2020-01-15] MEDS: MULTIVITAMIN with MINERAL TABLET. PO SCH (07:34)
[2020-01-15] MEDS: LISINOPRIL 20 MG TABLET PO SCH (07:34)
[2020-01-15 07:35] VITALS: BP 172/74
[2020-01-15] MEDS: CELECOXIB 100 MG CAPSULE PO SCH (07:35)
[2020-01-15] MEDS: OMEGA-3 FATTY ACIDS/FISH OIL 1,000 MG CAPSULE. PO SCH (07:35)
[2020-01-15] MEDS: METOPROLOL TART IMMED RELEASE 25 MG TABLET. PO SCH (07:35)
[2020-01-15] MEDS: APIXABAN 5 MG TABLET. PO SCH (07:35)
[2020-01-15] MEDS: AZITHROMYCIN 250 MG TABLET. PO SCH (07:36)
[2020-01-15] MEDS: LACTOBACILLUS RHAMNOSUS GG 1 CAPSULE. PO SCH (07:36)
[2020-01-15] MEDS: FLUTICASONE 50MCG/NASAL SPRAY 16GM BOTTLE. NS SCH (07:36)
[2020-01-15] MEDS: CHOLECALCIFEROL (VITAMIN D3) 1,000 UNIT TABLET PO SCH (07:36)
[2020-01-15] MEDS: ATORVASTATIN CALCIUM 20 MG TABLET PO SCH (07:36)
[2020-01-15] MEDS: INSULIN LISPRO 300 UNITS/3 ML VIAL. SQ SCH ×2 (07:45→12:00)
[2020-01-15] MEDS ORDERED: amLODIPine BESYLATE 5 MG TABLET PO ONE (12:15)
[2020-01-15] MEDS ORDERED: AMLO-187 PO (12:35)
[2020-01-15] MEDS ORDERED: APIX5TAB3 PO (12:35)
[2020-01-15] MEDS ORDERED: DOXY100C2 PO (12:35)
[2020-01-15] MEDS: VANCOMYCIN PER PHARMACY MC PRN (13:16)
--- NOTE | 2020-01-15 13:16 | NUR ---
Pharmacy Vancomycin Dosing Note S:Consulted to monitor and dose vancomycin started 01/11/20. O:JIMENA YOUSIF is a 79 year old F with Pneumonia, . Height: 5 feet, 0 inches Weight: 94.5 kg [place] Body Weight: 45.50 Adjusted Body Weight: 64.90 Dosing Weight: Actual Other Antibiotics: ZOSYN 3.375GM Q6HRS AZITHROMYCIN 250MG DAILY LABS: Last BUN: 23 Last Creatinine: 1.3 Creatinine Clearance: 37.08 Last WBC: 6.8 Last Procalcitonin: Tmax (past 24 hours): Microbiology: I/O: Drug Levels: Last Trough level: 19.1 on 01/15/20 at 0530 Last dose given 01/14/20 at 1736 Vancomycin Dosing: Loading Dose: 2000 mg x1 Dosing Weight: Actual Target Trough: 15-20 A: Based on: P: 1. Change Vancomycin 1500 mg IV q24h from 750mg q12hrs 2. Follow up Trough level on 01/17/20 at 1730 3. Pharmacy will continue to monitor, follow and adjust therapy as needed. WYATT ESCOBEDO RPH, 01/15/20 [id number]
--- NOTE | 2020-01-15 13:25 | NUR ---
PATIENT IS DISCHARGED HOME WITH SELF CARE. PATIENT IS STABLE AT TIME OF DISCHARGE. PATIENTS IV IS REMOVED AND TELE MONITOR D/C'D. PATIENT IS ESCORTED OFF OF UNIT ACCOMPANIED BY STAFF.
--- NOTE | 2020-01-15 15:02 | PN ---
DATE: SUBJECTIVE: A 79-year-old female brought in with shortness of breath and pulmonary emboli. It is pretty obvious also some type of infectious process as her white count has come down from almost 18,000 down to 6. The patient's hemoglobin has dropped from 11.8 down to 9.8 and she continues to be monitored carefully on such, noted that she really desaturated down in the low 80s with minimal exertion walking down the hallway with Physical therapy; once stopped, it came back up, but still required some nasal cannula at times. OBJECTIVE: VITAL SIGNS: Blood pressure 150/70, respiratory rate 16, pulse 80, afebrile. GENERAL: The patient presently on room air, had been on nasal cannula. The patient is alert and oriented. LUNGS: Diminished, but clear than they have been. CARDIOVASCULAR: Regular sinus rhythm. LABORATORY DATA: Blood sugars are being monitored. The patient is making good progress. COVID-19 negative. IMPRESSION: Otherwise, acute respiratory failure, pulmonary emboli, extremely hypoxic bradycardia, sinus tachycardia, pulmonary emboli, post back surgery by 3 weeks, essential hypertension, leukocytosis. PLAN: The patient continued to be monitored, adjusted on her medications and hopefully ready for discharge as she recuperates. BRENDAN BROWNING MD DR: ESTER/cale JOB#: [id number] / [id number]
[2020-01-15] MEDS ORDERED: VANCOMYCIN 1.5 GM in IV NORMAL SALINE 500ML 500 ML IV SCH (18:00)
[2020-01-16] MEDS ORDERED: amLODIPine BESYLATE 10 MG TABLET PO SCH (09:00)
== END 2020-01-15 13:25 | disposition home or self-care (01) | DRG 871 ==
LOC: ER 03:38 → ICU 09:41 → 1 SOUTH 01-12 15:19
PROVIDERS: ADMIT Family Medicine; ATTEND Family Medicine
DX: A41.9 Sepsis, unspecified organism (principal); J18.9 Pneumonia, unspecified organism; I26.99 Other pulmonary embolism without acute cor pulmonale; J96.01 Acute respiratory failure with hypoxia; I50.33 Acute on chronic diastolic (congestive) heart failure; E44.0 Moderate protein-calorie malnutrition; E87.1 Hypo-osmolality and hyponatremia; N17.9 Acute kidney failure, unspecified; Z68.41 Body mass index [BMI] 40.0-44.9, adult; D64.9 Anemia, unspecified; E11.9 Type 2 diabetes mellitus without complications; E78.00 Pure hypercholesterolemia, unspecified; E78.5 Hyperlipidemia, unspecified; E83.42 Hypomagnesemia; E87.6 Hypokalemia; I11.0 Hypertensive heart disease with heart failure; Z96.652 Presence of left artificial knee joint; E66.9 Obesity, unspecified; Z20.828 Contact with and (suspected) exposure to other viral communicable diseases; I49.5 Sick sinus syndrome; Z82.49 Family history of ischemic heart disease and other diseases of the circulatory system; Z85.828 Personal history of other malignant neoplasm of skin; Z86.73 Personal history of transient ischemic attack (TIA), and cerebral infarction without residual deficits; Z98.1 Arthrodesis status; Z88.1 Allergy status to other antibiotic agents; Z88.8 Allergy status to other drugs, medicaments and biological substances
CPT/HCPCS: 36415; 71045; 71046; 78580; 80048; 80053; 80202; 81001; 82274; 82947; 83036; 83605; 83735; 83880; 84443; 84484; 85007; 85025; 85379; 87040; 87086; 87804; 93005; 94640; 96365; 96374; 96375; 99285; A9540; J0456; J1650; J1815; J1940; J2543; J3370; J7040; J7050; U0003; 97110; 97116; 97530; J7030; J7613

== ENCOUNTER → 2020-07-07 | Outpatient (CLI) | payer MEDICARE ==
[~2020-07-07] MED LIST: AMLO-187 PO; APIX5TAB3 PO; ATORVASTATIN CA80 MG PO; CELE200C PO; CLOP75TA57 PO; DOXY100C2 PO; FLUT9.9S NS; FURO-69 PO; GABA-586 PO; LISI20TA18 PO; METF500T16 PO; METO25TA4 PO; MULT-245 PO; OMEG1CAP50 PO
--- NOTE | 2020-07-09 08:35 | RAD ---
DATE: July 07, 2020 EXAM: DIGITAL SCREEN BILAT W/CAD HISTORY: Screening study. COMPARISON: 2019 This study was interpreted with the benefit of Computerized Aided Detection (CAD). FINDINGS: Breast Density: FATTY The breast parenchyma is primarily fatty replaced. Breast parenchyma level density A.. There are no dominant suspicious masses, suspicious microcalcifications or evidence of architectural distortion. IMPRESSION: No mammographic indicators for malignancy. BI-RADS CATEGORY: 1 NEGATIVE RECOMMENDED FOLLOW-UP: 12M 12 MONTH FOLLOW-UP PQRS compliance statement: Patient information was entered into a reminder system with a target due date July 08, 2021 for the next mammogram. Mammography is a sensitive method for finding small breast cancers, but it does not detect them all and is not a substitute for careful clinical examination. A negative mammogram does not negate a clinically suspicious finding and should not result in delay in biopsying a clinically suspicious abnormality. "Our facility is accredited by the [employer] Mammography Program." The patient's breast density may affect the ability of mammography to detect breast cancer. There are 4 categories of breast density, A, B, C and D. Breast density A means that most of the breast tissue is replaced with adipose tissue and therefore is not dense. Breast density B means that the breast tissue is mildly dense and scattered. Breast density C means that the breast tissue is heterogeneously dense. Breast density D means that the breast tissue is very dense. Breast densities especially C and D may decrease the sensitivity of mammography to detect breast cancer. Therefore, the patient may benefit from 3-D breast mammography (3D breast tomography) as a part of their screening mammogram. Insurance may or may not pay for this additional imaging. The patient's breast density based on today's mammogram is category A.
== END ==
LOC: MAMMO 14:42
PROVIDERS: ATTEND Family Medicine
DX: Z12.31 Encounter for screening mammogram for malignant neoplasm of breast (principal)
CPT/HCPCS: 77067

== ENCOUNTER 2020-08-29 15:20 | Inpatient (IN) | payer MEDICARE ==
[~2020-08-29] VITALS: Ht 152.4 cm; Wt 90.8 kg
[~2020-08-29 15:20] MED LIST changes: -APIX2.5T PO; -KRIL1CAP5 PO; -METO50TA6 PO; -SULF1TAB24 PO
[2020-08-29 15:41] VITALS: BP 107/51
--- NOTE | 2020-08-29 16:19 | EKG ---
[address] [address] Test Date: 2020-08-29 Test Time: 16:15:06 Pat Name: JIMENA YOUSIF Department: Room: [facility] A Gender: F Teaching Music Lessons: : 1940 Requested By: BRENDAN BROWNING Order Number: [id number] Reading MD: Gideon Woody Measurements Intervals [place] Rate: 104 P: 0 MD: 200 QRS: 15 QRSD: 72 T: 46 QT: 304 QTc: 400 Interpretive Statements SINUS TACHYCARDIA Electronically Signed On 09-02-2020 12:31:49 CDT by Gideon Woody
[2020-08-29] MEDS ORDERED: METO50TA6 PO (16:42)
[2020-08-29] MEDS ORDERED: FURO-69 PO (16:42)
[2020-08-29] MEDS ORDERED: APIX2.5T PO (16:42)
[2020-08-29] MEDS ORDERED: KRIL1CAP5 PO (16:42)
[2020-08-29] MEDS ORDERED: DEXTROSE 50% 25 GM / 50ML DISP.SYRIN. IV PRN (17:30)
[2020-08-29] MEDS: metFORMIN 500 MG TABLET PO SCH (17:30)
[2020-08-29] MEDS: GABAPENTIN 300 MG CAPSULE. PO SCH ×2 (17:30→20:59)
[2020-08-29 19:30] VITALS: BP 100/60
[2020-08-29] MEDS: INSULIN LISPRO 300 UNITS/3 ML VIAL. SQ SCH (20:00)
[2020-08-29] MEDS: ATORVASTATIN CALCIUM 20 MG TABLET PO SCH (20:59)
[2020-08-29] MEDS: APIXABAN 2.5 MG TABLET PO SCH (20:59)
[2020-08-29] MEDS: LISINOPRIL 20 MG TABLET PO SCH (21:00)
[2020-08-29] MEDS: METOPROLOL TART IMMED RELEASE 50 MG TABLET PO SCH (21:00)
[2020-08-29 22:06] LABS: BILIRUBIN,URINE NEG (NEG); CLARITY,URINE CLEAR; COLOR,URINE YELLOW; GLUCOSE,URINE NEG (NEG)
[2020-08-29 22:07] LABS: BACTERIA,URINE FEW /HPF (0-FEW); NITRITE,URINE NEG (NEG); SQUAMOUS EPITHELIAL CELL,UR FEW /LPF; UROBILINOGEN,URINE 0.2 mg/dL (0.2 mg/dL); WBC,URINE OCC /HPF (0-4)
[2020-08-29] MEDS ORDERED: ACETAMINOPHEN 500 MG TABLET PO PRN (23:00)
[2020-08-30] VITALS (7 sets, daily range): BP systolic 95–119; BP diastolic 58–72
--- NOTE | 2020-08-30 07:43 | RAD ---
EXAMINATION: XR CHEST 2V CLINICAL HISTORY: Lactic acidosis, sepsis EXAM DATE/TIME: 08/29/2020 8:59 PM COMPARISON: 01/13/2020 FINDINGS: Lines, Tubes, and Devices: None. Cardiomediastinal Silhouette: Normal heart size. Aortic atherosclerotic calcification. Lungs and Pleura: Mild bibasilar opacities and blunting of the costophrenic angles, similar to prior study and likely related to chronic scarring and atelectasis. Nonspecific mild diffuse interstitial p rominence, likely chronic. Bones and Soft Tissues: Degenerative changes of the thoracic spine. IMPRESSION: No evidence of acute cardiopulmonary abnormality. Similar-appearing chronic changes. Electronically signed by: Jorje Sweeney DO (08/30/2020 7:40 AM) ERINN
[2020-08-30] MEDS: INSULIN LISPRO 300 UNITS/3 ML VIAL. SQ SCH ×3 (08:00→17:00)
[2020-08-30] MEDS: metFORMIN 500 MG TABLET PO SCH ×2 (08:55→17:20)
[2020-08-30] MEDS: FUROSEMIDE 20 MG TABLET PO SCH (08:55)
[2020-08-30] MEDS: amLODIPine BESYLATE 10 MG TABLET PO SCH (08:56)
[2020-08-30] MEDS: GABAPENTIN 300 MG CAPSULE. PO SCH ×3 (08:56→20:55)
[2020-08-30] MEDS: METOPROLOL TART IMMED RELEASE 50 MG TABLET PO SCH (08:56)
[2020-08-30] MEDS: APIXABAN 2.5 MG TABLET PO SCH ×2 (08:56→20:55)
[2020-08-30] MEDS: LISINOPRIL 20 MG TABLET PO SCH (08:57)
[2020-08-30 11:41] LABS: BASO % 0 % (0-3); EOS # 0.4 x10^3/uL (0.0-0.7); EOS % 6 % (0-3); HEMATOCRIT 35.7 % (36.0-47.0); HEMOGLOBIN 11.6 g/dL (12.0-15.5); LYMPH % 16 % (24-48); MEAN CORPUSCULAR HEMOGLOBIN 30 pg (25-35); MEAN CORPUSCULAR HGB CONC 33 g/dL (31-37); MEAN CORPUSCULAR VOLUME 93 fL (79-100); MONO # 0.6 x10^3/uL (0.0-1.1); MONO % 10 % (0-9); NEUT # 4.2 x10^3uL (1.8-7.7); NEUT % 68 % (31-73); PLATELET COUNT 257 x10^3/uL (140-400); RED BLOOD COUNT 3.86 x10^6/uL (3.50-5.40); WHITE BLOOD COUNT 6.2 x10^3/uL (4.0-11.0)
[2020-08-30] MEDS: AZITHROMYCIN 250 MG TABLET. PO SCH (12:15)
[2020-08-30] MEDS: ATORVASTATIN CALCIUM 20 MG TABLET PO SCH (20:55)
[2020-08-30] MEDS ORDERED: LISINOPRIL 5 MG TABLET. PO SCH (21:00)
--- NOTE | 2020-08-30 21:52 | PN ---
DATE: 08/30/2020 SUBJECTIVE: A 80-year-old female came in with various complaints of generalized weakness, fever, chills and the like. The patient also had an elevated white count of 12,000 and an elevated C-reactive protein of 95.6. The patient otherwise seems to be resting fairly comfortably at the present time. Blood sugars are being monitored carefully. UA was unremarkable. OBJECTIVE: VITAL SIGNS: Blood pressure presently 95/58, respiration 18, pulse 90, afebrile, 93% on room air. HEENT: The patient's head was atraumatic, normocephalic. There is redness underneath her chin from her chin down to her neck, in the central part of the neck area, which appears to be cellulitis. The patient also says she has been having a loose cough. LUNGS: A chest x-ray was unremarkable. Diminished but clear. CARDIOVASCULAR: Regular sinus rhythm. ABDOMEN: Protuberant. EXTREMITIES: No clubbing, cyanosis, nor edema. LABORATORY DATA: Lactic acid was elevated. IMPRESSION: Cellulitis, erysipelas, type 2 diabetes, anemia of chronic disease. Continue with IV antibiotic therapy, type 2 diabetes, morbid obesity, history of CVA. PLAN: We will continue to monitor the patient accordingly. Continue on IV antibiotic therapy including Zithromax and Rocephin and make further evaluation on her. RAYMUNDO DR: ESTER/cale TID: [id number]
[2020-08-31 05:27] VITALS: BP 101/56
[2020-08-31] MEDS: INSULIN LISPRO 300 UNITS/3 ML VIAL. SQ SCH ×2 (08:00→11:51)
[2020-08-31] MEDS: FUROSEMIDE 20 MG TABLET PO SCH (08:45)
[2020-08-31] MEDS: metFORMIN 500 MG TABLET PO SCH (08:45)
[2020-08-31] MEDS: APIXABAN 2.5 MG TABLET PO SCH (08:45)
[2020-08-31] MEDS: AZITHROMYCIN 250 MG TABLET. PO SCH (08:46)
[2020-08-31] MEDS: GABAPENTIN 300 MG CAPSULE. PO SCH (08:46)
[2020-08-31] MEDS: amLODIPine BESYLATE 10 MG TABLET PO SCH (08:47)
[2020-08-31] MEDS ORDERED: LACTOBACILLUS RHAMNOSUS GG 1 CAPSULE. PO SCH (09:00)
[2020-08-31] MEDS ORDERED: LISINOPRIL 5 MG TABLET. PO SCH (09:00)
[2020-08-31] MEDS ORDERED: METOPROLOL TART IMMED RELEASE 25 MG TABLET. PO SCH (09:00)
[2020-08-31 10:31] VITALS: BP 99/51
[2020-08-31] MEDS ORDERED: SULF1TAB24 PO (12:13)
--- NOTE | 2020-09-02 19:43 | DS ---
DATE OF DISCHARGE: 08/31/2020 HOSPITAL COURSE: A 80-year-old female who had not been feeling very well. The patient came in with various complaints of generalized weakness, fever, chills, night sweats. The patient's C-reactive protein was elevated to almost 100. Her white count was 12,000. The patient also was hypotensive with a blood pressure of 95/58. The patient in turn came in. She also had elevated lactic acid levels of approximately 3.6. The patient on close exam did note to have cellulitis to the neck area consistent with erysipelas and placed on IV antibiotic therapy. The patient made good progress with this drug regimen and temperature did come down to 98.6, blood pressure remained stable at approximately 100/50, respiratory rate 18. The patient otherwise made good progress and blood cultures were negative, but the inflammation to her lower chin area extending down from the chin down into the supraclavicular area, had become markedly improved and not nearly as intense. The patient made good progress and was discharged home. IMPRESSION: Sepsis erysipelas, type 2 diabetes, chronic kidney disease stage IIIA. The patient will be discharged home, followed up as an outpatient and make further evaluation on her as indicated. She will continue on oral antibiotics and make progress along that line as well. She will be on a heart healthy, low carb diet, monitoring her blood sugars at home. She will return to clinic in 7-10 days or sooner as needed and continue on her antibiotics as an outpatient. NAUN DR: Aisha TID: [id number]
== END 2020-08-31 13:05 | disposition home or self-care (01) | DRG 872 ==
LOC: 1 SOUTH 15:20
PROVIDERS: ADMIT Family Medicine; ATTEND Family Medicine
DX: A41.9 Sepsis, unspecified organism (principal); L03.221 Cellulitis of neck; N39.0 Urinary tract infection, site not specified; D63.8 Anemia in other chronic diseases classified elsewhere; E11.9 Type 2 diabetes mellitus without complications; I95.9 Hypotension, unspecified; E66.01 Morbid (severe) obesity due to excess calories; A46 Erysipelas; Z86.73 Personal history of transient ischemic attack (TIA), and cerebral infarction without residual deficits; Z68.39 Body mass index [BMI] 39.0-39.9, adult; E11.22 Type 2 diabetes mellitus with diabetic chronic kidney disease; N18.31 Chronic kidney disease, stage 3a; I12.9 Hypertensive chronic kidney disease with stage 1 through stage 4 chronic kidney disease, or unspecified chronic kidney disease; Z88.1 Allergy status to other antibiotic agents
CPT/HCPCS: 36415; 71046; 74176; 80048; 81001; 82550; 82947; 83605; 85025; 86140; 87040; 93005; J0696

== ENCOUNTER → 2020-08-29 | Outpatient (CLI) | payer MEDICARE ==
[~2020-08-29] MED LIST changes: +APIX2.5T PO; +KRIL1CAP5 PO; +METO50TA6 PO; +SULF1TAB24 PO
[2020-08-29 12:23] LABS: BASO % 0 % (0-3); EOS # 0.3 x10^3/uL (0.0-0.7); EOS % 2 % (0-3); HEMATOCRIT 36.8 % (36.0-47.0); HEMOGLOBIN 12.1 g/dL (12.0-15.5); LYMPH # 0.6 x10^3/uL (1.0-4.8); LYMPH % 5 % (24-48); MEAN CORPUSCULAR HEMOGLOBIN 30 pg (25-35); MEAN CORPUSCULAR HGB CONC 33 g/dL (31-37); MEAN CORPUSCULAR VOLUME 92 fL (79-100); MONO # 0.7 x10^3/uL (0.0-1.1); MONO % 6 % (0-9); NEUT # 10.9 x10^3uL (1.8-7.7); NEUT % 87 % (31-73); PLATELET COUNT 244 x10^3/uL (140-400); RED BLOOD COUNT 3.99 x10^6/uL (3.50-5.40); RED CELL DISTRIBUTION WIDTH 13.7 % (11.5-14.5); WHITE BLOOD COUNT 12.5 x10^3/uL (4.0-11.0)
[2020-08-29 12:37] LABS: C REACTIVE PROTEIN 95.6 mg/L (0-3.3); CALCIUM 8.9 mg/dL (8.5-10.1); CREATININE 1.7 mg/dL (0.6-1.0); GFR 29.1; POTASSIUM 3.7 mmol/L (3.5-5.1)
--- NOTE | 2020-08-29 15:19 | RAD ---
CT abdomen pelvis without contrast dated 08/29/2020. No comparison available. CLINICAL INDICATION: Right flank pain for 3 weeks. TECHNIQUE: Contiguous axial imaging the M pelvis performed without the administration of IV or oral contrast. One or more of the following individualized dose reduction techniques were utilized for this examinat ion: 1. Automated exposure control 2. Adjustment of the mA and/or kV according to patient size 3. Use of iterative reconstruction technique. FINDINGS: Limited images of the lung bases show patchy opacity in the dependent lower lobes, likely atelectasis . There is mild pleural thickening and/or tiny pleural effusions. Heart size upper limits of normal. No pericardial effusion. Solid abdominal viscera not well evaluated in the absence of contrast material. No apparent attenuati on abnormality of the liver or spleen. Gallbladder unremarkable. Pancreas, adrenal glands and kidneys unremarkable. No hydronephrosis. There is some inflammatory stra nding in the bilateral perinephric fat, nonspecific. Unopacified GI tract normal in caliber and contour. No bowel wall thickening. No inflammatory strandi ng in the mesentery. Scattered diverticula throughout the colon. No paracolonic inflammatory changes. No ascites or lymphadenopathy. Appendix normal in caliber Images of pelvis show nondistended urinary bladder. Uterus and adnexa are unremarkable. No free fluid or pelvic adenopathy. Bone windows show no acute findings. Multilevel spondylosis. IMPRESSION: 1. No acute abnormality of abdomen or pelvis. Normal appendix. 2. Diverticulosis with no evidence of acute diverticulitis. 3. Mild inflammatory stranding in the bilateral perinephric fat, nonspecific. 4. Patchy bibasilar airspace disease, likely atelectasis. There are small bilateral pleural effusions and/or pleural thickening. Electronically signed by: Favio Wu MD (08/29/2020 3:16 PM) [id number]
== END ==
LOC: LAB 11:50
PROVIDERS: ATTEND Family Medicine
DX: K57.30 Diverticulosis of large intestine without perforation or abscess without bleeding (principal); J90 Pleural effusion, not elsewhere classified; N39.0 Urinary tract infection, site not specified; R50.81 Fever presenting with conditions classified elsewhere
CPT/HCPCS: 36415; 74176; 80048; 82550; 83605; 85025; 86140